=== PATIENT | female | born 1950 | race Caucasian/White ===

== ENCOUNTER 2016-11-21 11:24 | Emergency (ER) | payer MEDICARE ==
[2013-07-19 02:43] VITALS: BMI 24.2
[~2016-11-21 11:24] MED LIST: ACETAMINOPHEN500 M1 PO; DILANTIN100 MG PO; IBUPROFEN200 MG PO; KEPPRA250 MG PO; LASIX40 MG PO; MICRO-K10 MEQ PO; NORVASC10 MG PO; PROTONIX40 MG PO; ZESTRIL40 MG PO; ZOLOFT100 MG PO
[2016-11-21 13:21] LABS: BASOPHILS 0.4 % (0.0-2.0); EOSINOPHILS 5.1 % (0-7); HEMATOCRIT 35.3 % (36.0-48.0); HEMOGLOBIN 11.1 g/dL (12-16); IMMATURE GRANULOCYTES 0.4 % (0-5); MCH 31.4 pg (26.0-34.0); MCHC 31.4 g/dL (31.0-37.0); MCV 99.7 fL (80.0-100.0); MEAN PLATELET VOLUME 10.2 fL (7.4-10.4); NEUTROPHILS 65.1 % (40-80); RBC 3.54 10x6/uL (4.00-5.40); RDW 12.5 % (11.5-14.5); WBC 5.5 10x3/uL (4.8-10.8)
[2016-11-21 13:32] LABS: PLATELET COUNT 156 10x3/uL (130-400)
[2016-11-21 13:35] LABS: APTT 24.9 SECONDS (22.8-39.4)
[2016-11-21 13:43] LABS: ALBUMIN 3.5 g/dL (3.4-5.0); ALKALINE PHOSPHATASE 83 U/L (46-116); ALT (SGPT) 21 U/L (10-68); CALC OSMOLALITY 294 mosm/kg (275-300); CALCIUM 8.9 mg/dL (8.5-10.1); CARBON DIOXIDE 23.3 mmol/L (21.0-32.0); CHLORIDE - SERUM 105 mmol/L (98-107); CREATININE - SERUM 1.4 mg/dL (0.6-1.3); GLUCOSE 103 mg/dL (74-106); POTASSIUM - SERUM 4.8 mmol/L (3.5-5.1); PROTEIN - SERUM 6.6 g/dL (6.4-8.2); SODIUM 139 mmol/L (136-145); UREA NITROGEN 59 mg/dL (7-18); eGFR NON AFRICAN AMERICAN 40 mL/min (90-120)
[2016-11-21 13:47] LABS: INR 0.86 (0.85-1.17); PROTIME 11.6 SECONDS (11.6-15.0)
[2016-11-21 13:51] LABS: CHOL - HDL RATIO 4.5 ratio (2.3-4.1); CHOLESTEROL, TOTAL 207 mg/dL (0-200); CKMB 0.6 U/L (0.0-3.6); CREATINE KINASE 63 UL (21-215); HDL CHOLESTEROL 46 mg/dL (32-96); LDL CHOLESTEROL 136 mg/dL (0-100); TRIGLYCERIDE 129 mg/dL (30-200); TROPONIN-I < 0.017 ng/mL (0.000-0.060)
== END 2016-11-21 15:04 | disposition home or self-care (01) ==
LOC: D.ER 11:24
PROVIDERS: Emergency Medicine
DX: R07.89 Other chest pain (principal); F31.9 Bipolar disorder, unspecified; J44.9 Chronic obstructive pulmonary disease, unspecified; I10 Essential (primary) hypertension; E78.5 Hyperlipidemia, unspecified

== ENCOUNTER → 2017-01-25 10:04 | Outpatient (CLI) | payer MEDICARE ==
[2013-07-19 02:43] VITALS: BMI 24.2
[2017-01-25 11:09] LABS: ANION GAP 16.8 mmol/L (8-16); BILIRUBIN - TOTAL 0.44 mg/dL (0.2-1.3); CARBON DIOXIDE 22.2 mmol/L (21.0-32.0); CREATININE - SERUM 1.4 mg/dL (0.6-1.3); PROTEIN - SERUM 7.6 g/dL (6.4-8.2); THYROID STIMULATING HORMONE 2.18 uIU/mL (0.36-3.74)
[2017-01-25 11:29] LABS: ERYTHROCYTE SEDIMENTATION RATE 38 mm/hr (0-30)
[2017-01-26 07:26] LABS: RAPID PLASMA REAGIN Non Reactive (Non Reactive)
[2017-01-26 10:20] LABS: ANA REFLEX - DIRECT Negative (Negative)
== END | disposition home or self-care (01) ==
LOC: D.LAB 10:04
PROVIDERS: Psychiatry & Neurology Neurology
DX: R41.3 Other amnesia (principal)

== ENCOUNTER → 2017-03-28 10:18 | Outpatient (CLI) | payer MEDICARE ==
[2013-07-19 02:43] VITALS: BMI 24.2
== END | disposition home or self-care (01) ==
LOC: D.US 10:18
DX: N18.3 Chronic kidney disease, stage 3 (moderate) (principal); I10 Essential (primary) hypertension; Z68.33 Body mass index [BMI] 33.0-33.9, adult

== ENCOUNTER 2018-04-27 20:37 | Inpatient (IN) | payer MEDICARE ==
[~2018-04-27] VITALS: Ht 167.6 cm; Wt 96.6 kg
[2018-04-27 21:21] LABS: BASOPHILS 0.2 % (0-2); EOSINOPHILS 2.3 % (0-7); HEMATOCRIT 36.3 % (36.0-48.0); HEMOGLOBIN 12.1 g/dL (12-16); IMMATURE GRANULOCYTES 0.2 % (0-5); LYMPHOCYTES 22.6 % (15-50); MCH 31.8 pg (26.0-34.0); MCHC 33.3 g/dL (31.0-37.0); MCV 95.5 fL (80.0-100.0); NEUTROPHILS 69.7 % (40-80); PLATELET COUNT 213 10x3/uL (130-400); RDW 13.1 % (11.5-14.5); WBC 8.1 10x3/uL (4.8-10.8)
[2018-04-27 21:29] LABS: INR 0.92 (0.85-1.17)
[2018-04-27 21:54] LABS: ALBUMIN 3.6 g/dL (3.4-5.0); ANION GAP 14.3 mmol/L (8-16); BILIRUBIN - TOTAL 0.32 mg/dL (0.2-1.3); CALCIUM 8.3 mg/dL (8.5-10.1); CARBON DIOXIDE 23.5 mmol/L (21.0-32.0); CREATININE - SERUM 2.6 mg/dL (0.6-1.3); POTASSIUM - SERUM 4.8 mmol/L (3.5-5.1); PROTEIN - SERUM 7.4 g/dL (6.4-8.2)
[2018-04-28] VITALS (7 sets, daily range): BP systolic 108–147; BP diastolic 51–82; Ht 167.6 cm; Wt 96.6 kg
[2018-04-28 06:05] LABS: BASOPHILS 0.2 % (0-2); EOSINOPHILS 3.8 % (0-7); HEMATOCRIT 33.3 % (36.0-48.0); HEMOGLOBIN 11.3 g/dL (12-16); IMMATURE GRANULOCYTES 0.4 % (0-5); LYMPHOCYTES 30.1 % (15-50); MCH 31.7 pg (26.0-34.0); MCHC 33.9 g/dL (31.0-37.0); MEAN PLATELET VOLUME 10.9 fL (7.4-10.4); MONOCYTES 5.5 % (2-11); RBC 3.56 10x6/uL (4.00-5.40); RDW 12.9 % (11.5-14.5)
[2018-04-28 06:10] LABS: MCV 93.5 fL (80.0-100.0); PLATELET COUNT 168 10x3/uL (130-400); WBC 5.6 10x3/uL (4.8-10.8)
[2018-04-28 06:13] LABS: ANION GAP 12.5 mmol/L (8-16); CALCIUM 8.1 mg/dL (8.5-10.1); CARBON DIOXIDE 23.9 mmol/L (21.0-32.0); CREATININE - SERUM 1.9 mg/dL (0.6-1.3); POTASSIUM - SERUM 4.4 mmol/L (3.5-5.1)
[2018-04-28 10:01] LABS: % SATURATION 19 % (15-55); IRON 59 ug/dl (35-150); TOTAL IRON BIND CAPACITY 302 ug/dl (260-445); UNSAT IRON BIND CAPACITY 243 ug/dl (150-375)
[2018-04-28] MEDS ORDERED: VENTOLIN HFA18 GM INH (10:07)
[2018-04-28] MEDS ORDERED: ZYPREXA10 MG PO (10:07)
[2018-04-28] MEDS ORDERED: PRAVACHOL40 MG PO (10:08)
[2018-04-28] MEDS ORDERED: DEPAKOTE ER250 MG PO (10:10)
[2018-04-28] MEDS ORDERED: REMERON15 MG PO (10:10)
[2018-04-28] MEDS ORDERED: OMEPRAZOLE40 MG PO (10:11)
[2018-04-28 19:55] LABS: APPEARANCE CLEAR (CLEAR); BILIRUBIN NEGATIVE (NEGATIVE); COLOR YELLOW (YELLOW); GLUCOSE NEGATIVE (NEGATIVE); KETONE NEGATIVE (NEGATIVE); NITRITE NEGATIVE (NEGATIVE); PROTEIN NEGATIVE (NEGATIVE); UROBILINOGEN NORMAL (NORMAL)
[2018-04-28 19:57] LABS: BACTERIA FEW /hpf (NONE SEEN); EPITHELIAL CELLS 0-5 /hpf (0-5)
[2018-04-29] VITALS: BP 138/49
[2018-04-29 04:00] VITALS: BP 106/61
[2018-04-29 05:07] LABS: BASOPHILS 0.2 % (0-2); EOSINOPHILS 3.6 % (0-7); HEMATOCRIT 34.8 % (36.0-48.0); HEMOGLOBIN 11.3 g/dL (12-16); IMMATURE GRANULOCYTES 0.6 % (0-5); LYMPHOCYTES 34.2 % (15-50); MCH 30.9 pg (26.0-34.0); MCHC 32.5 g/dL (31.0-37.0); MCV 95.1 fL (80.0-100.0); MEAN PLATELET VOLUME 11.1 fL (7.4-10.4); MONOCYTES 5.7 % (2-11); NEUTROPHILS 55.7 % (40-80); PLATELET COUNT 164 10x3/uL (130-400); RBC 3.66 10x6/uL (4.00-5.40); RDW 13.2 % (11.5-14.5); WBC 4.7 10x3/uL (4.8-10.8)
[2018-04-29 05:17] LABS: ANION GAP 15.2 mmol/L (8-16); CALCIUM 8.3 mg/dL (8.5-10.1); CARBON DIOXIDE 22.2 mmol/L (21.0-32.0); POTASSIUM - SERUM 4.4 mmol/L (3.5-5.1)
[2018-04-29 05:18] LABS: CREATININE - SERUM 1.4 mg/dL (0.6-1.3)
[2018-04-29 07:49] VITALS: BP 113/50
[2018-04-29 11:12] VITALS: BP 132/92
[2018-05-01 08:18] LABS: FOLATE (FOLIC ACID) - SERUM 17.7 ng/mL (>3.0)
== END 2018-04-29 13:22 | disposition home or self-care (01) | DRG 378 ==
LOC: D.ER 20:37 → D.M2 23:27
PROVIDERS: Family Medicine; Internal Medicine Nephrology
DX: K92.1 Melena (principal); N17.9 Acute kidney failure, unspecified; F17.213 Nicotine dependence, cigarettes, with withdrawal; D50.9 Iron deficiency anemia, unspecified; I12.9 Hypertensive chronic kidney disease with stage 1 through stage 4 chronic kidney disease, or unspecified chronic kidney disease; E11.22 Type 2 diabetes mellitus with diabetic chronic kidney disease; N18.3 Chronic kidney disease, stage 3 (moderate); G40.909 Epilepsy, unspecified, not intractable, without status epilepticus; F32.9 Major depressive disorder, single episode, unspecified; F41.9 Anxiety disorder, unspecified; E11.65 Type 2 diabetes mellitus with hyperglycemia; Z86.73 Personal history of transient ischemic attack (TIA), and cerebral infarction without residual deficits